=== PATIENT | female | born 1975 | race Two or more races ===

== ENCOUNTER 2016-12-04 08:11 | Day surgery (SDC) | payer OTHER ==
--- NOTE | 2016-12-03 13:13 | HP ---
Tabitha Benitez : 1975 HISTOYR OF PRESENT ILLNESS: This is a 42-year-old female with retirement anemia and heavy menses. She has tried the Depo-Provera shot without relief of the menses and she is offering no other complaints. She is admitted for a dilation and curettage, hysteroscopy , and endometrial ablation. OB HISTORY: 4, para 4-0-0-3, four normal vaginal deliveries. BIOMETRICS SPECIALIST HISTORY: Menarche 13 x28 x7. She describes having heavy periods with passage of clots. No history of sexually transmitted diseases. She does have a history of a tubal ligation. SOCIAL HISTORY: Nonsmoker, nondrinker. PAST MEDICAL HISTORY: Includes anemia, hypertension, diabetes. ALLERGIES: None. CURRENT MEDICATIONS: She takes: 1. Metformin. 2. Lisinopril. PAST SURGICAL HISTORY: Tubal ligation. FAMILY HISTORY: Negative. REVIEW OF SYSTEMS: Noncontributory except for the BIOMETRICS SPECIALIST history. PHYSICAL EXAMINATION: GENERAL: Healthy female in no acute distress. HEENT: Normal. NECK: Supple. Thyroid not palpable. BREAST: Soft. No masses. No nipple discharge and nontender. ABDOMEN: Benign. PELVIC: External genitalia healthy, vagina healthy, cervix pink, and nontender. Uterus top normal size and anteverted, nontender. Adnexa negative. IMPRESSION: Anemia secondary to abnormal uterine bleeding. PLAN: Dilation and curettage, hysteroscopy, and endometrial ablation. Risks, reason, complications, including infection, anesthesia reaction, perforation, but not limited to these were discussed with the patient and in [place]. Sterility discussed. Tubal ligation syndrome discussed all in [place] and in simple language and all questions were answered. Alternatives were also discussed in the past including continuing her Depo-Provera shot, oral contraception, intrauterine device versus surgery. Plan again dilation and curettage, hysteroscopy, and endometrial ablation. JOB:
[~2016-12-04 08:11] MED LIST: LACTATED RINGERS 1,000 ML IV SCH; LIDOCAINE 1% 2 ML VIAL ID PRN
[2016-12-04] MEDS ORDERED: MIDAZOLAM HCL 1 MG/ML 2ML VIAL ONE (10:07)
[2016-12-04] MEDS ORDERED: FENTANYL 100 MCG/2 ML VIAL ONE (10:07)
[2016-12-04] MEDS ORDERED: ONDANSETRON 4 MG/2ML 2 ML VIAL IV PRN (10:44)
[2016-12-04] MEDS ORDERED: KETOROLAC TROMETHAMINE 30 MG/ML 1 ML VIAL IV ONE (10:44)
[2016-12-04] MEDS ORDERED: PROMETHAZINE HCL 25 MG/ML VIAL IM PRN (10:44)
[2016-12-04] MEDS ORDERED: LABETALOL HCL 5 MG/ML 20ML VIAL IV PRN (10:44)
[2016-12-04] MEDS ORDERED: MEPERIDINE 25 MG/ML SYRINGE IV PRN (10:44)
[2016-12-04] MEDS ORDERED: NALOXONE HCL 0.4 MG/ML VIAL IV PRN (10:44)
[2016-12-04] MEDS ORDERED: HYDROMORPHONE HCL 1 MG/ML SYRINGE IV PRN (10:44)
[2016-12-04] MEDS ORDERED: FENTANYL 100 MCG/2 ML VIAL IV PRN (10:44)
[2016-12-04] MEDS ORDERED: ATROPINE SULFATE 0.4 MG/1 ML VIAL IV PRN (10:44)
[2016-12-04] MEDS ORDERED: HYDRALAZINE HCL 20 MG/1 ML VIAL IV PRN (10:44)
[2016-12-04] MEDS ORDERED: LACTATED RINGERS 1,000 ML IV SCH (10:45)
[2016-12-04] MEDS ORDERED: LIDOCAINE 2% (PRES FREE) 5 ML VIAL ONE (10:47)
[2016-12-04] MEDS ORDERED: PROPOFOL 20 ML IV ONE (10:47)
[2016-12-04] MEDS ORDERED: IBUPROFEN 800 MG TABLET PO PRN (11:16)
--- NOTE | 2016-12-04 11:35 | PCMBPN ---
Brief Post Op Note: Date of Procedure: 12/04/16 Start Time: Preoperative Diagnosis: 1. anemia, abnormal uterine bleeding Postoperative Diagnosis: 1. Same Procedure: dilatation and curettage, hysteroscopy, endometrial ablation Surgeon: Chepe Nguyen Assist: Anesthesia: general, mr samuels Findings: external genitalia healthy, cervix patulous, vaginal healthy, uterus top normal size anteverted, adnexa negative, hysteroscopy findings normal, sounded to 8.5 cm, cervix length 3 cm, width 4.4cm, power 133, time 1:45 ( novasure), scanty curettings Condition: stable Complications:none IV Fluids: mLs of LR Urine Output: 400 mLs Estimated Blood Loss: 5 mLs Tourniquet Time: N/A Specimens: endocervical and endometrial curettings Implants: Drains: N/A patient tolerated procedure well and was returned to recovery room in stable condition
[2016-12-04] MEDS ORDERED: OXYCODONE/ACETAMINOPHEN 5/325 MG TABLET ONE (12:30)
[2016-12-04] MEDS: OXYCODONE/ACETAMINOPHEN 5/325 MG TABLET PO PRN ×2 (12:31→13:37)
[2016-12-04] MEDS ORDERED: IBUPROFEN 800 MG TABLET ONE (12:32)
--- NOTE | 2016-12-04 12:51 | OP ---
Tabitha Benitez : 1975 NAME OF OPERATION: Dilation and curettage, hysteroscopy, and endometrial ablation. PREOPERATIVE DIAGNOSIS: Anemia and abnormal uterine bleeding. POSTOPERATIVE DIAGNOSIS: Anemia and abnormal uterine bleeding. BENCH GRINDER: Dr. Chepe Ward. ANESTHESIA: Mr. Regan General. DESCRIPTION: Dictation begins with patient under general anesthesia and she was placed in the lithotomy position. The local area was prepared with Betadine and draped in the usual manner. The bladder was emptied of 400 mL of clear yellow urine by straight catheterization. After a timeout was performed exam under anesthesia revealed the external genitalia healthy, vagina appeared healthy, the cervix was patulous and pink, the uterus top normal size and anteverted, the adnexa negative. A duckbill speculum was inserted into the vagina gently. The anterior lip of the cervix was grasped with a single pronged tenaculum. Curettage from the endocervical canal produced scanty amounts of mucous and blood. Next, the uterus was sounded to 8.5 cm, the cervix gradually dilated with Hegar dilators and then curettaged with scanty endometrial curettings. Following this, hysteroscopic exam was performed using normal saline. Findings were normal. Deficit was zero. Photographs were taken. Lastly, the NovaSure endometrial ablation was performed in the following manner, the uterus was again sounded, total length was 8.5 cm, the cervical length was 3 cm, so the cavity length was 5.5 cm. The NovaSure instrument was opened prior to inserting into the uterus to test and then closed, placed through the cervix into the uterine cavity and opened. Measurements included a cavity length of 5.5 cm, the width was 4.4 cm, and then the NovaSure ablation was performed with a power of 133 and time of 1 minute 45 seconds. This was done uneventfully and at the end of the procedure the NovaSure was collapsed and removed. The single pronged tenaculum was removed. There was a bleeding point noted on the cervix which was cauterized with a silver nitrate stick resulting in complete hemostasis. Now with complete hemostasis observed the duckbill speculum was removed and the sponge and instrument count reported as correct and complete hemostasis the operation ended. Estimated blood loss was 5 mL. Specimens included endocervical and endometrial curettings. The urine output was 400 mL by straight catheterization. She tolerated procedure well and was returned to recovery room in stable condition. FINAL DIAGNOSIS: Pending. JOB: [id number]
--- NOTE | 2016-12-04 12:56 | DS ---
Tabitha Mendes [facility] COURSE: A 41-year-old female who was admitted with abnormal uterine bleeding and anemia. She underwent a dilation and curettage, hysteroscopy, and endometrial ablation and tolerated the procedure well and was sent home in good condition with Motrin and Percocet for pain relief. Activities were explained to the patient prior to anesthesia. Laboratory values included a capillary glucose of 134. Pathology is pending at that time of dictation. FINAL DIAGNOSIS: Anemia and abnormal uterine bleeding. JOB: [id number]
[2016-12-04] MEDS ORDERED: HYDROMORPHONE HCL 0.5 MG/0.5 ML SYRINGE IV ONE (13:32)
[2016-12-04] MEDS ORDERED: HYDROMORPHONE HCL 1 MG/ML SYRINGE ONE (13:33)
--- NOTE | 2016-12-10 14:21 | SURGPATH ---
[facility] [address] [place] [id number] Patient Name: ANTOINETTE RALPH MR#: [id number] : 1975 Gender: F Specimen #: [id number] Collected: 12/04/2016 Received: 12/07/2016 Reported: 12/08/2016 Submitting Phys: ELIAS BUSCH I Copy To Phys: KASSY SIMPSON [facility] Clinical History / Pre-Operative Diagnosis: ABDOMINAL PAIN; VAGINAL BLEEDING Specimen Source / Surgical Procedure Performed: #1-ENDOCERVICAL CURETTINGS; #2-ENDOMETRIAL CURETTINGS Interpretation: 1. ENDOCERVIX, CURETTAGE: - FRAGMENT OF BENIGN PROLIFERATIVE ENDOMETRIUM - SCANT FRAGMENTS OF SUPERFICIAL BENIGN ENDOCERVICAL MUCOSA 2. ENDOMETRIUM, CURETTAGE: - FRAGMENTS OF BENIGN PROLIFERATIVE ENDOMETRIUM Electronically Signed Out Marcela Bauman M.D. Gross Description: #1 The specimen is received in a formalin filled container labeled with the patient's name and "endocervical curettings". An aggregate of hernandez tissue admixed with hemorrhagic and mucoid material is 0.7 x 0.5 x 0.2 cm. Totally embedded in cassette #1. #2 The specimen is received in a formalin filled container labeled with the patient's name and "endometrial curettings". An aggregate of hernandez tissue admixed with hemorrhagic and mucoid material is 3.0 x 2.4 x 0.5 cm. Totally embedded in cassette #2. Raeann Dent Microscopic Description: Part 1: Small fragments of endometrium are seen with tubular glands in an edematous stroma without hyperplasia or carcinoma. Also seen are superficial fragments of benign endocervical tissue. No dysplasia is seen. No squamous epithelium is seen. Part 2: Sections show fragments of proliferative endometrium with tubular glands set within a spindled stroma lacking plasma cells. Tubal metaplasia is seen. No hyperplasia or carcinoma is seen. 1: [id number] 2: 68267 N93.8
== END 2016-12-04 14:50 | disposition home or self-care (01) ==
LOC: SDC 08:11
PROVIDERS: ATTEND Obstetrics & Gynecology
DX: N93.9 Abnormal uterine and vaginal bleeding, unspecified (principal); D50.0 Iron deficiency anemia secondary to blood loss (chronic); I10 Essential (primary) hypertension; E11.9 Type 2 diabetes mellitus without complications
CPT/HCPCS: 58563; J1170; J3010; A9270 ×2; J2250; J2405